=== PATIENT | male | born 1985 | race Caucasian/White ===

== ENCOUNTER 2021-04-13 19:07 | Emergency (ER) | payer MEDICAID ==
[~2021-04-13] VITALS: Ht 185.4 cm; Wt 72.7 kg
[2021-04-13 21:00] VITALS: BP 116/77
== END 2021-04-13 23:14 | disposition home or self-care (01) ==
LOC: ER 19:08
DX: F07.81 Postconcussional syndrome (principal); R51.9 Headache, unspecified; R42 Dizziness and giddiness; F17.200 Nicotine dependence, unspecified, uncomplicated; F12.90 Cannabis use, unspecified, uncomplicated; Z72.89 Other problems related to lifestyle
CPT/HCPCS: 70450; 99284